=== PATIENT | female | born 1965 | race Caucasian/White ===

== ENCOUNTER → 2016-09-16 | Outpatient (CLI) | payer OTHER ==
--- NOTE | ~2016-09-16 | ECHO ---
Cardiac Stress Test Demographics Patient Name CELIA MULLINS Date of Study 09/16/2016 Patient Number [id number] Visit Number [id number] Date of 1965 Room Number Gender Female Number Age 50 year(s) Referring Shiva Interpreting Shiva Rodarte Physician Aster Physician Physician Ordering Shiva Rodarte Nurse Licensed Practical Physician Supervising Guerrero Olson APRN Stress Admin Asst MD/CATRACHITA Nurse Procedure Type of Study Cardiac Stress Test:TREADMILL STRESS TEST. Procedure Date Date: 09/16/2016 Start: 12:00 PM Indications:Chest pain. Conclusions Summary Exercised for 9 minutes through 3 stages of gilbert protocol. No chest pain during exercise - described pretest chest pain as "very mild, and possibly anxiety". Appropriate hemodynamic response to exercise. About 1mm of horizontal ST depression in leads II, III, aVf, and 1mm of upsloping ST depression in EKG portion is indeterminate for ischemia by diagnostic criteria. Please consider stress test with imaging if clinically indicated. Risk Factors - The patient's risk factor(s) include: orally-treated diabetes mellitus and arterial hypertension. Stress Protocol Rest ECG Normal sinus rhythm. Pre-Stress Physical Exam Patient assessed by Royer ESTEVEZ prior to testing. Mild chest pain 1/10 substernal, sharp - mild radiation to back. Stress Peak HR: 162 bpm HR Response: Appropriate Peak BP: 200/80 mmHg BP Response: Appropriate Predicted HR: 171 bpm HR BP Product: [id number] % of predicted HR: 95 Reason for Termination: Target heart rate ECG About 1mm of horizontal ST depression in leads II, III, aVf, and 1mm of Arrhythmias No arrhythmias. Symptoms Shortness of breath. Chest pain relief during exercise. Signature dtt: ASTER DOTY dtd: 09/16/16 1200 Physician Self Edit
== END | disposition disaster alternative care site (69) ==
LOC: GCAR 09-08 07:15 → GRAD 09-08 07:15 → GCAR 09-08 09:00
DX: R07.9 Chest pain, unspecified (principal); I10 Essential (primary) hypertension; E11.9 Type 2 diabetes mellitus without complications